=== PATIENT | female | born 1970 | race African-American/Black ===

== ENCOUNTER → 2016-09-19 | Outpatient (CLI) | payer BC ==
--- NOTE | 2016-09-19 15:51 | KCIC ---
PROCEDURE Right breast ultrasound. HISTORY Six month followup on fibrocystic change in the right breast. COMPARISON Right breast ultrasound March 20, 2016. FINDINGS Ultrasound imaging was performed of the right breast by hybrid technologist. Imaging was performed of the right breast at 9:30, 7 centimeters from nipple, in area of previous abnormality. Normal breast parenchyma is seen. No solid or cystic masses are identified. Additional imaging was performed of right axilla. No abnormality is identified. IMPRESSION No persistent sonographic abnormality. Apparent interval resolution of previously identified fibrocystic change. Recommend return to annual screening mammography. Patient is due for annual mammography in February 2017. BIRADS: 2 - Benign Finding(s) Electronically signed by: Lloyd Arango MD (Sep 19, 2016 15:49:16)
== END | disposition home or self-care (01) ==
LOC: KCIC US 15:30
PROVIDERS: ATTEND Internal Medicine
DX: R92.8 Other abnormal and inconclusive findings on diagnostic imaging of breast (principal)
CPT/HCPCS: 76641